=== PATIENT | female | born 1955 | race Caucasian/White ===

== ENCOUNTER → 2020-09-20 13:28 | Outpatient (CLI) | payer OTHER, SELFPAY ==
--- NOTE | ~2020-09-20 | XR_ITS ---
XR hand LT min 3V DATE: 09/20/2020 13:50 INDICATION: Left hand pain TECHNIQUE: 3 views COMPARISON: None FINDINGS: There is a benign appearing lucency with sclerotic margin at the ulnar styloid process. Osteoarthritic changes are noted at the distal interphalangeal joints primarily. There is mild osteoa rthritis at the first metacarpophalangeal joint as well. No fracture, dislocation, periosteal reaction or bone destruction. IMPRESSION: Mild osteoarthritis Reviewed, dictated and finalized at location B. IMPRESSION: Mild osteoarthritis
== END ==
PROVIDERS: PCP Family Medicine; Visit Provider Family Medicine
DX: M79.642 Pain in left hand (principal); M19.042 Primary osteoarthritis, left hand
CPT/HCPCS: 73130

== ENCOUNTER 2024-10-05 15:08 | Outpatient (CLI) | payer OTHER, SELFPAY ==
--- NOTE | ~2024-10-05 | XR_ITS ---
Right Hand Technique: PA and lateral views were obtained. Clinical History: Polyarthralgia Findings: No acute fracture or dislocation is seen. Osseous alignment is anatomic. There is moderate degenerative change of the fifth DIP joint. Soft tissues are unremarkable. Impression: Moderate degenerative change of the fifth DIP joint. Reviewed, dictated and finalized at location . Impression: Moderate degenerative change of the fifth DIP joint.
--- NOTE | ~2024-10-05 | XR_ITS ---
Left Hand Technique: PA and lateral views were obtained. Clinical History: Polyarthralgia Findings: No acute fracture or dislocation is seen. Osseous alignment is anatomic. There is moderate degenerative change of the fifth DIP joint. Soft tissues are unremarkable. Impression: Moderate degenerative change of the fifth DIP joint. Reviewed, dictated and finalized at location . Impression: Moderate degenerative change of the fifth DIP joint.
== END 2024-10-05 15:09 | disposition home or self-care (01) ==
LOC: MICIMG 15:12
PROVIDERS: PCP Family Medicine; Visit Provider Physician Assistant Medical
DX: R76.8 Other specified abnormal immunological findings in serum (principal); M19.042 Primary osteoarthritis, left hand; M19.041 Primary osteoarthritis, right hand
CPT/HCPCS: 73120